=== PATIENT | female | born 1975 | race Caucasian/White ===

== ENCOUNTER 2019-09-01 16:15 | Inpatient (IN) | payer MEDICAID, SELFPAY ==
[~2019-09-01] VITALS: Ht 165.1 cm; Wt 93.0 kg
[~2019-09-01 16:15] MED LIST: ALPR1TAB2; IRON PO; MULT PO; OMEP20CA4 PO; TIZANIDINE PO; ZOLP10TA2 PO
[2019-09-01 16:21] VITALS: BP_SYST 136
--- NOTE | 2019-09-01 17:00 | NUR ---
Patient to ER bed 06 to gown for evaluation. Side rails up.
[2019-09-01] MEDS ORDERED: NACL 0.9% 1,000 ML IV ONE (17:05)
--- NOTE | 2019-09-01 17:05 | NUR ---
Patient came from home for evaluation. Patient is complaining of RLQ abdominal pain since yesterday. She tried using a laxative and anti-gas medication with no relief.
[2019-09-01] MEDS ORDERED: KETOROLAC TROMETHAMINE 30 MG VIAL IVP ONE (17:15)
--- NOTE | 2019-09-01 17:17 | NUR ---
Patient up to restroom.
[2019-09-01 17:24] LABS: BASOPHILS % (AUTO) 0.3 % (0.0-2.0); EOSINOPHILS % (AUTO) 0.4 % (0.0-4.0); HEMATOCRIT 40.6 % (36-48); HEMOGLOBIN 13.3 g/dL (12.0-16.0); LYMPHOCYTES # (AUTO) 1.6 K/uL (1.0-5.5); LYMPHOCYTES % (AUTO) 14.2 % (20.5-51.5); MEAN CORPUSCULAR HEMOGLOBIN 31 pg (27-31); MEAN CORPUSCULAR HGB CONC 33 % (32-36); MEAN CORPUSCULAR VOLUME 94 fL (79.0-98.0); MONOCYTES # (AUTO) 0.6 K/uL (0.0-1.0); MONOCYTES % (AUTO) 4.9 % (1.7-9.3); NEUTROPHILS # (AUTO) 9.3 K/uL (1.8-7.7); NEUTROPHILS % (AUTO) 80.2 % (40.0-70.0); PLATELET COUNT (AUTO) 256 K/uL (130-430); RED BLOOD CELL COUNT(AUTO) 4.33 MIL/uL (4.2-6.2); RED CELL DISTRIBUTION WIDTH 13.6 % (9.0-15.0); WHITE BLOOD COUNT (AUTO) 11.6 K/uL (4.8-10.8)
[2019-09-01 18:06] LABS: CALCIUM 8.5 mg/dL (8.4-11.0); CREATININE 0.84 mg/dL (0.55-1.30); POTASSIUM 3.8 mmol/L (3.5-5.1)
[2019-09-01 18:11] LABS: ALBUMIN 3.4 g/dL (3.4-4.8); TOTAL BILIRUBIN 0.5 mg/dL (0.0-1.0)
[2019-09-01] MEDS ORDERED: CEFEPIME 1 GM in D5W 50 ML IV ONE (18:45)
[2019-09-01 19:03] LABS: BILIRUBIN,URINE NEGATIVE (NEGATIVE); BLOOD, URINE NEGATIVE (NEGATIVE); CLARITY/URINE CLEAR (CLEAR); COLOR,URINE YELLOW (YELLOW); GLUCOSE,URINE NEGATIVE (NEGATIVE); KETONES,URINE TRACE (NEGATIVE); LEUKOCYTE ESTERASE ,URINE NEGATIVE (NEGATIVE); NITRITE, URINE NEGATIVE (NEGATIVE); PROTEIN URINE NEGATIVE (NEGATIVE); UROBILINOGEN,URINE 0.2 (0.2-1.0)
[2019-09-01] MEDS ORDERED: GABA800T PO (19:14)
[2019-09-01] MEDS ORDERED: ONDANSETRON HCL 4 MG/2 ML VIAL IVP PRN (19:15)
[2019-09-01] MEDS ORDERED: LR 1,000 ML IV ONE (19:15)
--- NOTE | 2019-09-01 19:15 | NUR ---
Report given to ARPITA Salvador for continuation of care.
[2019-09-01] MEDS ORDERED: CEFEPIME 1 GM/VIAL (MAXIPIME) ONE (19:21)
--- NOTE | 2019-09-01 20:38 | NUR ---
DR. BARAHONA CAME TO ER TO TALK WITH PATIENT. PT ASKED IF SHE COULD TAKE HER 800MG GABAPENTIN NIGHT TIME DOSE AND DR. BARAHONA SAID SHE COULD TAKE HER OWN GABAPENTIN. PT IS RESTING IN BED READING A BOOK WITH OUT ANY SIGNS OF ACUTE DISTRESS.
[2019-09-01] MEDS ORDERED: KETOROLAC TROMETHAMINE 30 MG VIAL IVP SCH (20:45)
[2019-09-01] MEDS ORDERED: PANTOPRAZOLE SODIUM 40 MG/VIAL (PROTONIX) IVP ONE (20:45)
--- NOTE | 2019-09-01 21:46 | NUR ---
PT PLACED IN HOSPITAL BED.
[2019-09-01] MEDS: CELECOXIB 200 MG CAPSULE PO SCH (22:18)
[2019-09-01] MEDS ORDERED: CELECOXIB 200 MG CAPSULE ONE (22:23)
--- NOTE | 2019-09-01 22:31 | NUR ---
PT A&O X4 RESTING IN HOSPITAL BED WATCHING TELEVISION. VITAL SIGNS STABLE. PT DENIES ANY COMPLAINTS. PT AMBULATORY WITH STEADY GAIT. PT REQUESTING FOOD BECAUSE SHE IS HUNGRY BUT IS NPO RIGHT NOW.
--- NOTE | 2019-09-01 22:35 | NUR ---
[facility] COLLECTED AND SENT TO LAB.
--- NOTE | 2019-09-01 23:22 | NUR ---
PT RESTING IN BED WATCHING TV. NO SIGNS OF ACUTE DISTRESS. PT RATES PAIN A 3 OUT OF 10.
[2019-09-02] VITALS (7 sets, daily range): BP systolic 104–130
[2019-09-02] MEDS: PIPERACILLIN/TAZO 3.375/DEX-IS 50 ML IV SCH ×3 (02:00→11:50)
[2019-09-02] MEDS ORDERED: PIPERACILLIN/TAZOBACTAM 3.375 GM/VIAL (ZOSYN) IV ONE ×2 (02:14→07:57)
--- NOTE | 2019-09-02 02:16 | NUR ---
CALLED DR. BARAHONA TO REQUEST PAIN MEDICATION PER PATIENT. HER PAIN IS HAS INCREASED TO A 5 OUT OF 10.
--- NOTE | 2019-09-02 02:22 | NUR ---
DR. BARAHONA CALLED BACK TO GIVE VERBAL ORDER OF 600MG IBUPROFEN PO Q6H PRN FOR MILD PAIN.
[2019-09-02] MEDS ORDERED: IBUPROFEN 600 MG TABLET PO PRN (02:30)
[2019-09-02 04:56] LABS: CALCIUM 7.8 mg/dL (8.4-11.0); CREATININE 0.72 mg/dL (0.55-1.30); POTASSIUM 3.5 mmol/L (3.5-5.1)
[2019-09-02 05:06] LABS: BASOPHILS % (AUTO) 0.4 % (0.0-2.0); EOSINOPHILS # (AUTO) 0.1 K/uL (0.0-0.4); EOSINOPHILS % (AUTO) 1.7 % (0.0-4.0); HEMATOCRIT 34.2 % (36-48); HEMOGLOBIN 11.5 g/dL (12.0-16.0); LYMPHOCYTES # (AUTO) 1.8 K/uL (1.0-5.5); LYMPHOCYTES % (AUTO) 22.8 % (20.5-51.5); MEAN CORPUSCULAR HEMOGLOBIN 32 pg (27-31); MEAN CORPUSCULAR HGB CONC 34 % (32-36); MEAN CORPUSCULAR VOLUME 94 fL (79.0-98.0); MONOCYTES # (AUTO) 0.5 K/uL (0.0-1.0); MONOCYTES % (AUTO) 6.6 % (1.7-9.3); NEUTROPHILS # (AUTO) 5.4 K/uL (1.8-7.7); NEUTROPHILS % (AUTO) 68.5 % (40.0-70.0); PLATELET COUNT (AUTO) 210 K/uL (130-430); RED BLOOD CELL COUNT(AUTO) 3.66 MIL/uL (4.2-6.2); WHITE BLOOD COUNT (AUTO) 7.8 K/uL (4.8-10.8)
--- NOTE | 2019-09-02 06:34 | NUR ---
PT SLEEPING IN BED COMFORTABLY. VITAL SIGNS STABLE. NO SIGNS OF ACUTE DISTRESS.
--- NOTE | 2019-09-02 07:24 | NUR ---
REPORT GIVEN TO ARPITA GILES FOR CONTINUTATION OF CARE.
--- NOTE | 2019-09-02 07:40 | NUR ---
Patient resting comfortably in bed, respirations even and unlabored, speaking in full sentences. Denied any respiratory distress at this time.
--- NOTE | 2019-09-02 08:25 | NUR ---
ADMIT NOTE Received pt from ER to the floor with a diagnosis of acute appy. Admission process initiated. patient oriented to pain management, safety and call light-teach back done.
--- NOTE | 2019-09-02 08:30 | NUR ---
ADMISSION NOTE PT RECEIVED VIA G[facility], ACCOMPANIED BY ER NURSE. PT STABLE, PAIN CONTROLLED AT THIS TIME. PT AMBULATES WITH STEADY GAIT TO BED. IVF INFUSING AT THIS TIME. CALL LIGHT WITHIN REACH, BED IN LOW AND LOCKED POSITION. EDUCATED PT ON SAFETY AND BED ALARM. PT VERBALIZED UNDERSTANDING, REFUSING BED ALARM AT THIS TIME.
--- NOTE | 2019-09-02 08:38 | NUR ---
Patient will be admitted to care of Dr. Miles. Admitted to [facility] unit. Will go to room 108C. Belongings list completed. Complete and up to date summary report printed. SBAR report to be given at bedside with opportunity for questions.
[2019-09-02] MEDS: CELECOXIB 200 MG CAPSULE PO SCH ×2 (08:48→20:54)
[2019-09-02] MEDS: GABAPENTIN 300 MG CAPSULE PO SCH ×2 (08:49→20:54)
[2019-09-02] MEDS: NACL 0.9% 1,000 ML IV SCH ×2 (08:49→17:28)
[2019-09-02] MEDS ORDERED: metroNIDAZOLE 500 MG TABLET PO ONE (09:30)
--- NOTE | 2019-09-02 10:18 | NUR ---
MEDICATIONS SCHEDULED MEDICATIONS ADMINISTERED. PT TOLERATED WELL. PT STATES SHE IS STILL HAVE DIARRHEA. PAIN IS CONTROLLED AT THIS TIME.
--- NOTE | 2019-09-02 11:39 | NUR ---
SS NOTES/DCP/SELF-PAY: GUIDE was referred by SS to see patient for DCP and self-pay status. GUIDE phoned patient @ [phone]. Pt is a 44 y/o female who came in via ED for abdominal pain. Pt stated her symptoms started yesterday, prompting her to seek medical help. Pt lives with her spouse and 3 children. Pt is independent with her ADL's and uses a cane "once in a while" when out in the community. Pt sustained a right knee injury in 1991 while in [employer] [employer]. Pt is receiving [employer] benefits at [employer] [facility] and at one point at [employer] [place]. Pt's source of income is through the [employer]. Pt also has a history of anxiety and depression but denies those symptoms currently. Pt denies any history of substance abuse/ETOH. Pt does not have an advanced directive and is interested in formulating one. Pt stated she had [employer] coverage but [facility] notes states they were unable to find coverage for patient. GUIDE provided patient with advanced directive and will email Javier from [employer] for possible [employer] application. No further SS needs identified at this time, but will remain available when needed.
--- NOTE | 2019-09-02 12:30 | NUR ---
RN ROUNDS PT RESTING IN BED, DENIES ANY PAIN OR DISCOMFORT AT THIS TIME, WILL CONTINUE TO MONITOR.
[2019-09-02] MEDS: metroNIDAZOLE 500 MG TABLET PO SCH ×2 (13:26→21:15)
--- NOTE | 2019-09-02 14:30 | NUR ---
RN ROUNDS PT AMBULATING HALLWAY, DENIES ANY PAIN OR DISCOMFORT. WILL CONTINUE TO MONITOR.
--- NOTE | 2019-09-02 16:30 | NUR ---
RN ROUNDS PT RESTING IN BED, DENIES ANY PAIN OR DISCOMFORT AT THIS TIME. NO CHANGE IN ASSESSMENT.
[2019-09-02] MEDS ORDERED: PIPERACILLIN/TAZO 3.375/DEX-IS 50 ML IV SCH (18:00)
--- NOTE | 2019-09-02 18:14 | NUR ---
DR. JUN LARRY AT BEDSIDE EXAMINING PT. MD TO START PT ON FULL LIQUID DIET. IF PT TOLERATES DIET WELL, SHE WILL BE CLEARED FOR DISCHARGE. VERIFIED WITH READ BACK.
[2019-09-02] MEDS ORDERED: METR500T PO (18:49)
[2019-09-02] MEDS ORDERED: AMOX-426 PO (18:49)
--- NOTE | 2019-09-02 18:50 | NUR ---
CLOSING NOTE PT EATING DINNER, TOLERATING WELL. PT DENIES ANY PAIN OR DISCOMFORT. IVF INFUSING WELL. CALL LIGHT WITHIN REACH, BED IN LOW AND LOCKED POSITION. EDUCATED PT ON SAFETY AND USE OF BED ALARM, PT VERBALIZED UNDERSTANDING, PT REFUSING BED ALARM AT THIS TIME. ALL NEEDS MET THROUGHOUT SHIFT. WILL CONTINUE TO MONITOR UNTIL PT CARE IS ENDORSED TO SUPPORTABILITY ENGINEER RN.
--- NOTE | 2019-09-02 19:15 | NUR ---
OPENING NOTE: Patient is awake, AOx4. No s/s of acute distress noted. Breathing is even and unlabored. IVF are infusing well. IV site is without signs of infiltration, infection, or redness. Bed locked in lowest position, bed alarm on, call light with patient. Patient educated on use and importance of call light. Patient verbalized understanding and demonstrated proper use. No new needs at this time. Will continue to monitor.
--- NOTE | 2019-09-02 20:10 | NUR ---
SPOKE WITH DR. BARAHONA: Dr. Barahona was spoken to about a written prescription for the patient because the patient wanted a written prescription to take [facility] the [facility] than [facility]. Dr. Barahona was here at the nurses station and wrote a written prescription for the patient. Patient will receive the prescription in her discharge instruction packet.
--- NOTE | 2019-09-02 21:45 | NUR ---
MEDICATION REFUSED: Patient stated she wanted to take her own Gabapentin that she had with her bedside. I told her should would not be able to take her home medications in the hospital and would have to take ours. She refused the med and told me she would just take her normal Gabapentin dose at home. Patient educated not take to home meds while here in the hospital because of possible double dosing, patient also encouraged to resume her home medications ONLY once she is home. Patient verbalized understanding. Patient is currently waiting for her ride to be D/C at this time. Will continue to monitor.
--- NOTE | 2019-09-02 22:37 | NUR ---
D/C PATIENT: Patient given medication reconciliation form and D/C instructions. Exit Care provided. Patient verbalized understanding. MD discussed with patient the results and treatment provided. Ambulatory with steady gait for discharge to home. Patient in stable condition, ID band removed. IV catheter removed, fully intact and dressing applied, no active bleeding. Rx of given. Patient educated on pain management. All belongings sent with patient. Patient had no further questions. Patient was transferred via wheelchair by [facility] to private vehicle. Patient's Marcella picked her up. Patient transferred from wheelchair to car with steady gait.
== END 2019-09-02 22:35 | disposition home or self-care (01) | DRG 395 ==
LOC: SED 16:15 → EEVIPCON 19:03 → SMU 19:03 → UNDOADMIN 22:55 → SMU 22:55
PROVIDERS: ADMIT Surgery; ATTEND Surgery
DX: K35.80 Unspecified acute appendicitis (principal); I10 Essential (primary) hypertension; E11.9 Type 2 diabetes mellitus without complications; Z88.5 Allergy status to narcotic agent; Z88.8 Allergy status to other drugs, medicaments and biological substances; Z79.899 Other long term (current) drug therapy
CPT/HCPCS: 36415; 80048; 80053; 81003; 85025; 87040-TC; 87081; 96361; 96365; 96375; 99285; C9113; J0692; J1885; J2543; J7030; J7120; U0003-CS

== ENCOUNTER 2020-12-21 08:25 | Emergency (ER) | payer MEDICAID ==
[~2020-12-21] VITALS: Ht 170.2 cm; Wt 103.4 kg
[~2020-12-21 08:25] MED LIST changes: -ALPR1TAB2; +AMOX-426 PO; +GABA800T PO; -IRON PO; +METR500T PO; -MULT PO; -OMEP20CA4 PO; -TIZANIDINE PO; -ZOLP10TA2 PO
[2020-12-21 08:45] VITALS: BP_SYST 152
--- NOTE | 2020-12-21 08:48 | NUR ---
Patient to ER bed 5 to gown for evaluation. Side rails up. Report given to RYAN PALM.
--- NOTE | 2020-12-21 09:00 | NUR ---
Pt came into ER with complaint of chronic lower left back pain 7/10 from a prior fall in July of 2020. Pt is AAOX4 speaking full sentences. Pt has herniated disc in sacral region. Pt states pain radiates up and down left side of body. Pt also reports vertigo sensation and dizziness with head movement. Pt Vital signs holding BP 139/93. Resting in gurney with heated blanket behind lower back for pain management.
--- NOTE | 2020-12-21 09:13 | NUR ---
ER at bedside examining patient.
[2020-12-21] MEDS ORDERED: HYDR-3927 PO ×3 (09:23→11:01)
[2020-12-21 10:25] VITALS: BP_SYST 139
--- NOTE | 2020-12-21 10:26 | NUR ---
Patient given written and verbal discharge instructions and verbalizes understanding. ER MD discussed with patient the results and treatment provided. Patient in stable condition. ID arm band removed. Rx of norco given. Patient educated on pain management and to follow up with PMD. Pain Scale 0/10. Opportunity for questions provided and answered. Medication side effect fact sheet provided.
== END 2020-12-21 10:25 | disposition home or self-care (01) ==
LOC: SED 08:25
DX: M54.50 Low back pain, unspecified (principal); I10 Essential (primary) hypertension; Z88.6 Allergy status to analgesic agent; Z88.5 Allergy status to narcotic agent; Z79.899 Other long term (current) drug therapy
CPT/HCPCS: 99283

== ENCOUNTER 2023-08-28 12:39 | Emergency (ER) | payer MEDICAID ==
[~2023-08-28] VITALS: Ht 170.2 cm; Wt 95.7 kg
[~2023-08-28 12:39] MED LIST changes: +HYDR-3927 PO
[2023-08-28 13:42] VITALS: BP_SYST 135; PULSE 83; RESP 18; TEMP 98.3; O2SAT 98
[2023-08-28] MEDS ORDERED: CYCL10TA24 PO (16:47)
[2023-08-28] MEDS: KETOROLAC TROMETHAMINE 30 MG VIAL IM ONE (17:12)
[2023-08-28 17:22] VITALS: BP_SYST 135; PULSE 83; RESP 18; TEMP 98.3; O2SAT 98
== END 2023-08-28 17:22 | disposition home or self-care (01) ==
LOC: SED 12:39
DX: S83.91XA Sprain of unspecified site of right knee, initial encounter (principal); S33.5XXA Sprain of ligaments of lumbar spine, initial encounter; M54.2 Cervicalgia; I10 Essential (primary) hypertension; Z88.5 Allergy status to narcotic agent; Z79.899 Other long term (current) drug therapy; Z79.2 Long term (current) use of antibiotics; W07.XXXA Fall from chair, initial encounter; Y93.89 Activity, other specified; Y92.89 Other specified places as the place of occurrence of the external cause; Y99.8 Other external cause status
CPT/HCPCS: 99284; 72100; 73564; 96372; J1885